=== PATIENT | female | born 1950 | race Hispanic/Latino ===

== ENCOUNTER → 2018-03-16 | Day surgery (SDC) | payer MEDICARE ==
[2018-03-13 15:11] LABS: ANION GAP 14.8 mmol/L (8-16); BLOOD UREA NITROGEN 14 mg/dL (7-26); BUN/CREATININE RATIO 21 (6-25); CALCIUM 8.5 mg/dL (8.4-10.2); CARBON DIOXIDE 19 mmol/L (22-29); CHLORIDE 106 mmol/L (98-107); CREATININE, SERUM 0.68 mg/dL (0.57-1.11); EST GLOMERULAR FILTRATION RATE > 60 ML/MIN (60-); GLUCOSE 126 mg/dL (74-118); POTASSIUM 3.8 mmol/L (3.5-5.1); SODIUM 136 mmol/L (136-145)
--- NOTE | 2018-03-13 15:26 | Diagnostic Imaging Report ---
EXAMINATION: PA and lateral views of the chest. COMPARISON: None CLINICAL HISTORY: Contracture, preoperative chest x-ray DISCUSSION: Lines/tubes: None. Lungs: The lungs are well inflated and clear. There is no evidence of pneumonia or pulmonary edema. Pleura: There is no pleural effusion or pneumothorax. Heart and mediastinum: Cardiomediastinal silhouette is unremarkable. Pulmonary vasculature is normal. Bones and soft tissues: No acute bony abnormalities. Degenerative changes in the thoracic spine IMPRESSION: No acute cardiopulmonary abnormalities. Signed by: Dr. Jethro Soriano M.D. on 03/13/2018 3:23 PM
[~2018-03-16] MED LIST: BUPIVACAINE HCL 0.5% INJ 30 ML VIAL INJ ONE; CEFAZOLIN SOD 2 GM/D5W 50ML 50 ML IV ONE; DEXAMETHASONE SOD PHOS INJ 4 MG/ML VIAL ONE; FENOFIBRATE145 MG PO; FENTANYL CITRATE/PF 100MCG/2 ML INJ ONE; GLIMEPIRIDE2 MG PO; IBUPROFEN400 MG PO; KETOROLAC TROMETHAMINE 30 MG/ML VIAL ONE; LIDOCAINE HCL 2% LOCAL INJ 5 ML SDV VIAL INJ ONE; LOSARTAN POTAS100 MG PO; MELOXICAM7.5 MG PO; MIDAZOLAM HCL 2 MG/2 ML VIAL ONE; MUPIROCIN 2% OINT 22 GM TUBE ONE; ONDANSETRON HCL INJ 2 MG/ML VIAL ONE; PROPOFOL IV EMULSION 10 MG/ML 20 ML VIAL ONE; ROCURONIUM BROMIDE 10 MG/ML 5ML VIAL ONE; SEVOFLURANE INHAL SOLN 250 ML PEN BTL ONE; ULTRAM 50MG50 MG PO
--- OUTSIDE RECORDS SUMMARY | 2018-03-16 09:38 | XMS REPORT ---
Author Author [facility] Address Unknown Phone Unavailable Care Team Providers Care Scales Inspector Name Role Phone KAE RODGERS Unavailable Unavailable Problems This patient has no known problems. Allergies, Adverse Reactions, Alerts This patient has no known allergies or adverse reactions. Medications This patient has no known medications. Results Test Description Test Time Test Comments Text Results Atomic Results Result Comments CHEST 2 VIEWS 2018-03-13 15:22:00 [place] [id number] Patient Name: MICHAEL VIVAR MR #: [id number] : 1950 Age/Sex: 67/F Req #: [id number] Adm Physician: Ordered by: KAE RODGERS DPM Report #: [id number] Location: OR Room/Bed: Procedure: [id number] DX/CHEST 2 VIEWS Exam Date: Exam Time: REPORT STATUS: Signed EXAMINATION: PA and lateral views of the chest. COMPARISON: None CLINICAL HISTORY: Contracture, preoperative chest x-ray DISCUSSION: Lines/tubes: None. Lungs: The lungs are well inflated and clear. There is no evidence of pneumonia or pulmonary edema. Pleura: There is no pleural effusion or pneumothorax. Heart and mediastinum: Cardiomediastinal silhouette is unremarkable. Pulmonary vasculature is normal. Bones and soft tissues: No acute bony abnormalities. Degenerative changes in the thoracic spine IMPRESSION: No acute cardiopulmonary abnormalities. Signed by: Dr. Em Soriano M.D. on 03/13/2018 3:23 PM Dictated By: EM SORIANO MD [id number] Transcribed By: MATILDA on 03/13/18 1523 COPY TO: KAE RODGERS DPM
[2018-03-16 11:28] LABS: BASOPHILS % 0.3 % (0.0-1.0); EOSINOPHILS # (AUTO) 0.3 (0.0-0.4); EOSINOPHILS % 4.6 % (0.0-6.0); HEMATOCRIT 31.9 % (34.2-44.1); HEMOGLOBIN 10.7 g/dL (12.0-16.0); LYMPHOCYTES # (AUTO) 1.8 (1.0-3.2); LYMPHOCYTES % 29.3 % (18.0-39.1); MEAN CORPUSCULAR HEMOGLOBIN 32.6 pg (28-32); MEAN CORPUSCULAR HGB CONC 33.5 g/dL (31-35); MEAN CORPUSCULAR VOLUME 97.3 fL (81-99); MONOCYTES # (AUTO) 0.6 (0.2-0.8); MONOCYTES % 9.4 % (4.4-11.3); NEUTROPHILS # (AUTO) 3.4 (2.1-6.9); NEUTROPHILS % 55.7 % (38.7-80.0); PLATELET COUNT 290 x10e3/uL (140-360); RED BLOOD COUNT 3.28 x10e6/uL (3.6-5.1); RED CELL DISTRIBUTION WIDTH 13.3 % (11.7-14.4)
[2018-03-16 16:20] VITALS: BP 153/73
--- NOTE | 2018-03-19 20:41 | Operative Report ---
DATE OF PROCEDURE: March 16, 2018 PREOPERATIVE DIAGNOSES: 1. Contracture of the gastrocnemius soleus complex, left foot. 2. Posterior heel spur, left foot. 3. Ruptured Achilles tendon, partial left foot. POSTOPERATIVE DIAGNOSES: 1. Contracture of the gastrocnemius soleus complex, left foot. 2. Posterior heel spur, left foot. 3. Ruptured Achilles tendon, partial left foot. ANESTHESIA: General endotracheal. HEMOSTASIS: A left thigh tourniquet 350 mmHg. PROCEDURES 1. Gastrocnemius soleus recession, left foot. 2. Excision posterior heel spur, left foot. 3. Repair of the Achilles tendon, left foot. PROCEDURE IN DETAIL: The patient was taken to the operating room in a mildly sedated state and placed upon the operating in the supine position. Following induction of a general anesthetic, the left lower extremity was elevated 60 degrees to exsanguinate before inflating the pneumatic thigh tourniquet to 350 mmHg. Lower extremity was placed on the operating table prior to performing the following procedure: Procedure number 1 gastrocnemius soleus freeing at the posterior aspect of the left heel. Curvilinear incision was made overlying the left foot. Large posterior heel spur was identified within its confines. The tendon itself was noted to be partially torn and was reflected away from the underlying tissue and at its insertion to the calcaneus. The large prominent spur was noted within the radiant area. The tear was completely lost. The posterior heel was then resected utilizing an osteotome and mallet. The tendon itself was reattached utilizing a 5-0 anchor with four #2 FiberWire sutures thus reattaching firmly the Achilles to the underlying anchor. It was noted there was still a gastrocnemius soleus contracture. Therefore, a 2nd incision was made further up the leg. A 2 cm incision was placed and dissected down all the way to the posterior gastrocnemius soleus complex. A transverse Nayely procedure was performed and the tendon was at that level lengthened to allow for a greater release of the tension at the insertion. The area was irrigated with copious amounts of sterile saline solution as was the posterior wound. Both were closed with a combination of 3-0 Vicryl, 4-0 Vicryl and 4-0 nylon. Human tissue allograft was used to apply to the posterior aspect of the heel. Appropriate mildly compressive dressings were applied and patient left the operating room with vital signs stable in apparent satisfactory condition having tolerated both anesthetic and procedure very well. Job#: [id number]
== END | disposition home or self-care (01) ==
LOC: OR 09:36
PROVIDERS: ATTEND Podiatrist Foot Surgery
DX: M24.575 Contracture, left foot (principal); M77.32 Calcaneal spur, left foot; M66.872 Spontaneous rupture of other tendons, left ankle and foot; I10 Essential (primary) hypertension; E78.5 Hyperlipidemia, unspecified; E11.9 Type 2 diabetes mellitus without complications; Z01.810 Encounter for preprocedural cardiovascular examination; Z01.812 Encounter for preprocedural laboratory examination; Z01.818 Encounter for other preprocedural examination; Z79.84 Long term (current) use of oral hypoglycemic drugs
CPT/HCPCS: 27650; 27687; 28119; 36415 ×2; 71046; 80048; 82948; 85025; 93005; J0690; J1100; J1885; J2001; J2250; J2405; J2704; 76001